=== PATIENT | male | born 1950 | race African-American/Black ===

== ENCOUNTER 2016-11-07 15:02 | Emergency (ER) | payer MEDICARE, MEDICAID ==
[~2016-11-07] VITALS: Ht 182.9 cm; Wt 55.0 kg
[~2016-11-07 15:02] MED LIST: ACET1TAB12 PO; ALBU05 NEB; AMLO10TA80 PO
[2016-11-07] MEDS: IPRATROPIUM/ALBUTEROL 0.5-3(2.5)MG/3ML NEB HHN ONE (16:30)
[2016-11-07] MEDS: LEVOFLOXACIN 500MG TABLET PO ONE (17:00)
[2016-11-07] MEDS: PREDNISONE 20MG TABLET PO ONE (17:00)
[2016-11-07 18:56] VITALS: BP 167/108
== END 2016-11-07 18:58 | disposition home or self-care (01) ==
LOC: ER 16:07
DX: J18.9 Pneumonia, unspecified organism (principal); J44.1 Chronic obstructive pulmonary disease with (acute) exacerbation; I10 Essential (primary) hypertension; F12.10 Cannabis abuse, uncomplicated; F17.200 Nicotine dependence, unspecified, uncomplicated
CPT/HCPCS: 71020; 93005; 94640; 99284; J7512; J7620

== ENCOUNTER 2018-10-02 07:30 | Emergency (ER) | payer MEDICAID, MEDICARE ==
[~2018-10-02] VITALS: Ht 182.9 cm; Wt 64.0 kg
[2018-10-02] MEDS ORDERED: ACETAMINOPHEN 325MG TABLET PO STA (10:07)
[2018-10-02] MEDS ORDERED: AMLODIPINE 10MG TABLET PO ONE (11:30)
[2018-10-02 14:17] LABS: *AMPHETAMINES SCREEN URINE NEGATIVE (NEGATIVE); *BARBITURATES SCREEN URINE NEGATIVE (NEGATIVE); *BENZODIAZEPINES SCREEN URINE NEGATIVE (NEGATIVE); *COCAINE SCREEN URINE NEGATIVE (NEGATIVE); METHADONE URINE SCREEN NEGATIVE (NEGATIVE); OPIATES URINE SCREEN NEGATIVE (NEGATIVE)
[2018-10-02 14:18] LABS: CANNABINOID URINE SCREEN NEGATIVE (NEGATIVE); PHENCYCLIDINE URINE SCREEN NEGATIVE (NEGATIVE)
[2018-10-02 14:29] VITALS: BP 138/84
== END 2018-10-02 14:33 | disposition home or self-care (01) ==
LOC: ER 07:30
DX: S00.83XA Contusion of other part of head, initial encounter (principal); J44.9 Chronic obstructive pulmonary disease, unspecified; I10 Essential (primary) hypertension; F17.200 Nicotine dependence, unspecified, uncomplicated; W51.XXXA Accidental striking against or bumped into by another person, initial encounter; Y93.89 Activity, other specified; Y92.89 Other specified places as the place of occurrence of the external cause; Y99.8 Other external cause status
CPT/HCPCS: 72100; 80305; 99284

== ENCOUNTER 2018-10-03 10:49 | Inpatient (IN) | payer MEDICARE, MEDICAID ==
[~2018-10-03] VITALS: Ht 182.9 cm; Wt 53.1 kg
[2018-10-03] MEDS ORDERED: ONDANSETRON HCL 4MG/2ML INJ IV STA (11:32)
[2018-10-03] MEDS ORDERED: SODIUM CHLORIDE 0.9% 1,000 ML IV ONE (11:32)
[2018-10-03] MEDS ORDERED: KETOROLAC 15MG/ML VIAL IV ONE (12:00)
[2018-10-03 12:25] LABS: HEMOGLOBIN. 15.2 g/dL (14.0-18.0); MEAN CORPUSCULAR HEMOGLOBIN 30.9 pg (28.0-32.0); MEAN CORPUSCULAR VOLUME 93.4 fL (80.0-94.0); MEAN PLATELET VOLUME 10.8 fl (7.4-10.4); PLATELET 171 x1000/uL (130-400); RED BLOOD CELL COUNT 4.93 mill/uL (4.7-6.1); RED CELL DISTRIBUTION WIDTH 19.7 % (11.6-14.6)
[2018-10-03 12:36] LABS: CHLORIDE 96 mEq/L (98-107)
[2018-10-03 12:41] LABS: D-DIMER 1.87 mg/L FEU (<0.50); INR 1.1
[2018-10-03 12:49] LABS: PLATELET ESTIMATE NORMAL
[2018-10-03] MEDS ORDERED: CEFTRIAXONE 1 G PREMIX 50 ML IV ONE (13:15)
[2018-10-03] MEDS ORDERED: AZITHROMYCIN 500 MG in DEXT 5% WATER 250 ML IV SCH (13:15)
[2018-10-03] MEDS: DILTIAZEM HCL 5MG/ML 5ML VIAL IV NR (16:11)
[2018-10-03] MEDS ORDERED: DOCUSATE SODIUM 100MG CAPSULE PO PRN (16:15)
[2018-10-03] MEDS ORDERED: ONDANSETRON HCL 4MG/2ML INJ IV PRN (16:15)
[2018-10-03] MEDS ORDERED: DIPHENHYDRAMINE 50MG/ML VIAL IV PRN (16:15)
[2018-10-03] MEDS ORDERED: ACETAMINOPHEN 650MG SUPP PR PRN (16:15)
[2018-10-03] MEDS ORDERED: NA PHOS,M-B/NA PHOS,DI-BA ENEMA 118ML PR PRN (16:15)
[2018-10-03] MEDS ORDERED: MAGNESIUM/ALUMINUM HYDROXIDE/SIMETHICONE 30ML UDC PO PRN (16:15)
[2018-10-03] MEDS ORDERED: IPRATROPIUM/ALBUTEROL 0.5-3(2.5)MG/3ML NEB INH PRN (16:15)
[2018-10-03] MEDS ORDERED: HYDROCODONE/ACETAMINOPHEN 5/325MG TABLET PO PRN (16:15)
[2018-10-03] MEDS ORDERED: LORAZEPAM 0.5MG TABLET PO PRN (16:15)
[2018-10-03] MEDS ORDERED: GUAIFENESIN 200MG/10ML SUGAR FREE UDC PO PRN (16:15)
[2018-10-03] MEDS ORDERED: ACETAMINOPHEN 325MG TABLET PO PRN (16:15)
[2018-10-03] MEDS ORDERED: DILTIAZEM HCL 5MG/ML 5ML VIAL IV PRN (16:15)
[2018-10-03] MEDS ORDERED: CLONIDINE 0.1MG TABLET PO PRN (16:15)
[2018-10-03 16:24] LABS: CLARITY URINE CLOUDY (CLEAR); COLOR URINE ORANGE (YELLOW); KETONES URINE TRACE (NEGATIVE); LEUKOCYTE ESTERASE URINE NEGATIVE (NEGATIVE); NITRITE URINE NEGATIVE (NEGATIVE); OCCULT BLOOD URINE NEGATIVE (NEGATIVE); PH URINE 5.5 (4.5-8.0); PROTEIN URINE 1+ (NEGATIVE); SPECIFIC GRAVITY URINE 1.018 (1.005-1.030)
[2018-10-03 16:27] LABS: BG BASE EXCESS 0.3 mmol/L (-2.0-2.0); BG CARBOXYHEMOGLOBIN 1.1 % (0.5-1.5); BG DEOXYHEMOGLOBIN 8.8 % (0.0-5.0); BG HCO3 ACT 22.7 mmol/L (22.0-26.0); BG METHEMOGLOBIN 0.3 % (0.0-1.5); BG OXYGEN SATURATION 91.1 % (92.0-98.5); BG OXYHEMOGLOBIN 89.8 % (94.0-97.0); BG PCO2 30.3 mmHg (35.0-45.0); BG PH 7.492 (7.350-7.450); BG PO2 59.5 mmHg (75.0-100.0); BG SAMPLE SITE RIGHT RADIAL; BG TOTAL HEMOGLOBIN 13.4 g/dL (12.0-18.0); BG VENT MODE ROOM AIR
[2018-10-03] MEDS ORDERED: DILTIAZEM HCL 30MG TABLET PO SCH (16:42)
[2018-10-03] MEDS: DILTIAZEM HCL 30MG TABLET PO SCH (17:48)
[2018-10-03 17:53] VITALS: BP 127/85
[2018-10-03 18:00] VITALS: BP 119/86
[2018-10-03] MEDS ORDERED: VANCOMYCIN 750 MG PREMIX 150 ML IV SCH (20:00)
[2018-10-03 20:01] VITALS: BP 99/71
[2018-10-03] MEDS: PIPERACILLIN/TAZ 2.25G PREMIX 50 ML IV SCH (20:08)
[2018-10-03] MEDS: SODIUM CHLORIDE 0.45% 1,000 ML IV SCH (20:17)
[2018-10-03 22:00] VITALS: BP 104/66
[2018-10-03 23:18] VITALS: BP 127/89
[2018-10-04] VITALS (14 sets, daily range): BP systolic 98–142; BP diastolic 23–92
[2018-10-04 00:06] LABS: CREATINE KINASE 255 IU/L (39-308)
[2018-10-04 00:26] LABS: CREATINE KINASE MB FRACTION < 1.0 ng/mL (0.5-3.6)
[2018-10-04] MEDS: DILTIAZEM HCL 30MG TABLET PO SCH ×4 (00:48→18:00)
[2018-10-04] MEDS: ENOXAPARIN 60MG/0.6ML SYR SUBCUT SCH ×2 (00:48→08:51)
[2018-10-04] MEDS: PIPERACILLIN/TAZ 2.25G PREMIX 50 ML IV SCH ×4 (01:59→20:44)
[2018-10-04] MEDS ORDERED: IOHEXOL-350 100 ML BOTTLE ONE (02:33)
[2018-10-04 07:36] LABS: CHLORIDE 98 mEq/L (98-107)
[2018-10-04 07:45] LABS: *AMPHETAMINES SCREEN URINE NEGATIVE (NEGATIVE); *BARBITURATES SCREEN URINE NEGATIVE (NEGATIVE); *BENZODIAZEPINES SCREEN URINE NEGATIVE (NEGATIVE); *COCAINE SCREEN URINE NEGATIVE (NEGATIVE)
[2018-10-04 07:46] LABS: CANNABINOID URINE SCREEN NEGATIVE (NEGATIVE); METHADONE URINE SCREEN NEGATIVE (NEGATIVE); OPIATES URINE SCREEN NEGATIVE (NEGATIVE); PHENCYCLIDINE URINE SCREEN NEGATIVE (NEGATIVE)
[2018-10-04 07:52] LABS: BASOPHILS % 0.2 % (0.0-2.0); EOSINOPHILS % 0.1 % (0.0-5.0); HEMATOCRIT. 34.7 % (42.0-52.0); HEMOGLOBIN. 11.5 g/dL (14.0-18.0); LYMPHOCYTES % 7.8 % (20.0-50.0); MEAN CORPUSCULAR HEMOGLOBIN 30.9 pg (28.0-32.0); MEAN CORPUSCULAR VOLUME 93.4 fL (80.0-94.0); MEAN PLATELET VOLUME 10.2 fl (7.4-10.4); MONOCYTES % 3.6 % (2.0-8.0); NEUTROPHILS % 88.3 % (40.0-76.0); PLATELET 90 x1000/uL (130-400); RED BLOOD CELL COUNT 3.71 mill/uL (4.7-6.1); RED CELL DISTRIBUTION WIDTH 19.3 % (11.6-14.6)
[2018-10-04] MEDS: BUDESONIDE 0.5MG/2ML NEB HHN SCH (07:52)
[2018-10-04] MEDS: IPRATROPIUM/ALBUTEROL 0.5-3(2.5)MG/3ML NEB INH SCH ×2 (07:52→13:40)
[2018-10-04 07:59] LABS: LDL CHOLESTEROL 11 mg/dL (5-100)
[2018-10-04] MEDS ORDERED: VANCOMYCIN 500 MG PREMIX 100 ML IV SCH (08:00)
[2018-10-04 08:01] LABS: CREATINE KINASE MB FRACTION < 1.0 ng/mL (0.5-3.6); HDL CHOLESTEROL 64 mg/dL (40-59); T4 FREE 1.43 ng/dL (0.76-1.46)
[2018-10-04 08:03] LABS: CREATINE KINASE 246 IU/L (39-308)
[2018-10-04] MEDS ORDERED: POTASSIUM CHLORIDE 20MEQ TABLET SR PO NR (08:45)
[2018-10-04] MEDS: SODIUM CHLORIDE 0.45% 1,000 ML IV SCH (08:52)
[2018-10-04] MEDS ORDERED: GENTAMICIN 100MG PREMIX 50 ML IV NR (10:00)
[2018-10-04] MEDS: GENTAMICIN 80MG PREMIX 100 ML IV SCH (22:03)
[2018-10-05] VITALS (7 sets, daily range): BP systolic 106–124; BP diastolic 61–89
[2018-10-05] MEDS: DILTIAZEM HCL 30MG TABLET PO SCH ×5 (00:17→23:26)
[2018-10-05] MEDS: BUDESONIDE 0.5MG/2ML NEB HHN SCH ×2 (01:30→20:05)
[2018-10-05] MEDS: IPRATROPIUM/ALBUTEROL 0.5-3(2.5)MG/3ML NEB INH SCH ×2 (01:31→20:06)
[2018-10-05] MEDS: SODIUM CHLORIDE 0.45% 1,000 ML IV SCH (01:57)
[2018-10-05] MEDS: PIPERACILLIN/TAZ 2.25G PREMIX 50 ML IV SCH ×3 (03:37→15:14)
[2018-10-05 06:47] LABS: BASOPHILS % 0.2 % (0.0-2.0); EOSINOPHILS % 0.8 % (0.0-5.0); HEMATOCRIT. 31.8 % (42.0-52.0); HEMOGLOBIN. 10.6 g/dL (14.0-18.0); LYMPHOCYTES % 9.9 % (20.0-50.0); MEAN CORPUSCULAR HEMOGLOBIN 30.8 pg (28.0-32.0); MEAN CORPUSCULAR VOLUME 92.3 fL (80.0-94.0); MONOCYTES % 4.6 % (2.0-8.0); NEUTROPHILS % 84.5 % (40.0-76.0); PLATELET 85 x1000/uL (130-400); RED BLOOD CELL COUNT 3.45 mill/uL (4.7-6.1); RED CELL DISTRIBUTION WIDTH 19.4 % (11.6-14.6)
[2018-10-05] MEDS ORDERED: ENOXAPARIN 40MG/0.4ML SYR SUBCUT SCH (09:00)
[2018-10-05] MEDS: GENTAMICIN 80MG PREMIX 100 ML IV SCH (09:41)
[2018-10-05] MEDS: CEFTRIAXONE 1 G PREMIX 50 ML IV SCH (17:28)
[2018-10-05 17:46] LABS: HEMATOCRIT 31.1 % (42.0-52.0); HEMOGLOBIN 10.3 g/dL (14.0-18.0); MEAN CORPUSCULAR HEMOGLOBIN 30.7 pg (28.0-32.0); MEAN CORPUSCULAR VOLUME 92.4 fL (80.0-94.0); PLATELET 88 x1000/uL (130-400); RED BLOOD CELL COUNT 3.36 mill/uL (4.7-6.1)
[2018-10-05 17:54] LABS: CHLORIDE 99 mEq/L (98-107)
[2018-10-05] MEDS ORDERED: POTASSIUM CHLORIDE 20MEQ TABLET SR PO NR (23:15)
[2018-10-06] VITALS (7 sets, daily range): BP systolic 127–159; BP diastolic 84–94
[2018-10-06] MEDS: IPRATROPIUM/ALBUTEROL 0.5-3(2.5)MG/3ML NEB INH SCH ×3 (01:58→21:26)
[2018-10-06] MEDS: DILTIAZEM HCL 30MG TABLET PO SCH ×3 (05:48→19:01)
[2018-10-06 06:03] LABS: CHLORIDE 103 mEq/L (98-107)
[2018-10-06 06:04] LABS: HEMATOCRIT. 30.4 % (42.0-52.0); HEMOGLOBIN. 10.4 g/dL (14.0-18.0); MEAN CORPUSCULAR HEMOGLOBIN 31.6 pg (28.0-32.0); MEAN CORPUSCULAR VOLUME 92.7 fL (80.0-94.0); PLATELET 100 x1000/uL (130-400); RED BLOOD CELL COUNT 3.28 mill/uL (4.7-6.1); RED CELL DISTRIBUTION WIDTH 19.2 % (11.6-14.6)
[2018-10-06 06:29] LABS: GENTAMICIN RANDOM 0.4 ug/mL
[2018-10-06 10:08] LABS: PLATELET ESTIMATE SLIGHTLY DECREASED
[2018-10-06] MEDS: CEFTRIAXONE 1 G PREMIX 50 ML IV SCH (19:02)
[2018-10-06] MEDS: BUDESONIDE 0.5MG/2ML NEB HHN SCH (21:26)
== END 2018-10-06 21:51 | DRG 871 ==
LOC: ER 10:49 → 3WST 14:44 → EDBEDREQ 15:00 → ENRESERV 15:14 → 8WST 10-04 23:15
PROVIDERS: ADMIT Internal Medicine; ATTEND Internal Medicine
DX: A41.59 Other Gram-negative sepsis (principal); I50.33 Acute on chronic diastolic (congestive) heart failure; J15.0 Pneumonia due to Klebsiella pneumoniae; J44.0 Chronic obstructive pulmonary disease with (acute) lower respiratory infection; E87.2 Acidosis; J44.1 Chronic obstructive pulmonary disease with (acute) exacerbation; R64 Cachexia; Z68.1 Body mass index [BMI] 19.9 or less, adult; R06.03 Acute respiratory distress; R73.9 Hyperglycemia, unspecified; I10 Essential (primary) hypertension; E86.0 Dehydration; E87.6 Hypokalemia; F17.200 Nicotine dependence, unspecified, uncomplicated; I11.0 Hypertensive heart disease with heart failure; E80.6 Other disorders of bilirubin metabolism; Z79.899 Other long term (current) drug therapy
CPT/HCPCS: 36415; 36600; 71045; 71275; 74177; 80048; 80061; 80170; 80305; 82375; 82550; 82553; 82805; 83036; 83605; 84439; 84443; 84484; 85027; 85379; 87070; 87077; 87186; 93005; 93306; 93970; 94640; 96361; 96365; 96368; 96375; 99285; J0456; J0696; J1580; J1650; J1885; J2405; J2543; J3370; J3490; J7030; J7040; J7060; J7620; J7626; Q9967

== ENCOUNTER 2020-04-10 18:48 | Emergency (ER) | payer MEDICARE, MEDICAID ==
[~2020-04-10] VITALS: Ht 182.9 cm; Wt 55.0 kg
[2020-04-10] MEDS ORDERED: CLONIDINE 0.2MG TABLET PO NR (21:30)
[2020-04-10 22:26] VITALS: BP 159/99
== END 2020-04-10 22:28 | disposition home or self-care (01) ==
LOC: ER 18:48
DX: I16.0 Hypertensive urgency (principal); G89.29 Other chronic pain; M54.9 Dorsalgia, unspecified; J44.1 Chronic obstructive pulmonary disease with (acute) exacerbation; I10 Essential (primary) hypertension; I49.9 Cardiac arrhythmia, unspecified; Z76.0 Encounter for issue of repeat prescription; Z98.890 Other specified postprocedural states
CPT/HCPCS: 93005; 99283

== ENCOUNTER 2020-04-23 14:21 | Emergency (ER) | payer MEDICARE, MEDICAID ==
[~2020-04-23] VITALS: Ht 182.9 cm; Wt 64.0 kg
[2020-04-23] MEDS ORDERED: METOPROLOL TARTRATE 50MG TABLET PO ONE (15:00)
[2020-04-23] MEDS ORDERED: DILTIAZEM HCL 180MG CAPSULE CD 24HR PO ONE (15:00)
[2020-04-23] MEDS ORDERED: HYDRALAZINE HCL 50MG TABLET PO ONE (15:00)
[2020-04-23 15:30] LABS: CHLORIDE 109 mEq/L (98-107)
[2020-04-23 15:33] LABS: HEMATOCRIT 41.1 % (42.0-52.0); HEMOGLOBIN 13.1 g/dL (14.0-18.0); MEAN CORPUSCULAR HEMOGLOBIN 27.8 pg (28.0-32.0); MEAN CORPUSCULAR VOLUME 87.3 fL (80.0-94.0); PLATELET 228 x1000/uL (130-400); RED BLOOD CELL COUNT 4.71 mill/uL (4.7-6.1); RED CELL DISTRIBUTION WIDTH 24.2 % (11.6-14.6)
[2020-04-23 18:04] VITALS: BP 180/98
== END 2020-04-23 18:05 | disposition home or self-care (01) ==
LOC: ER 14:51
DX: I10 Essential (primary) hypertension (principal); Z76.0 Encounter for issue of repeat prescription; F03.90 Unspecified dementia, unspecified severity, without behavioral disturbance, psychotic disturbance, mood disturbance, and anxiety; J44.9 Chronic obstructive pulmonary disease, unspecified; M54.30 Sciatica, unspecified side; Z98.1 Arthrodesis status
CPT/HCPCS: 36415; 80048; 82962; 84484; 85027; 93005; 99284; 99285

== ENCOUNTER 2020-07-30 23:19 | Emergency (ER) | payer MEDICARE ==
[~2020-07-30] VITALS: Ht 182.9 cm; Wt 64.0 kg
[2020-07-31] MEDS ORDERED: SODIUM CHLORIDE 0.9% 1,000 ML IV ONE (02:15)
[2020-07-31 04:05] LABS: BASOPHILS % 0.9 % (0.0-2.0); EOSINOPHILS % 2.5 % (0.0-5.0); HEMATOCRIT. 40.2 % (42.0-52.0); HEMOGLOBIN. 12.8 g/dL (14.0-18.0); LYMPHOCYTES % 35.8 % (20.0-50.0); MEAN CORPUSCULAR HEMOGLOBIN 28.9 pg (28.0-32.0); MEAN CORPUSCULAR VOLUME 90.4 fL (80.0-94.0); MEAN PLATELET VOLUME 9.5 fl (7.4-10.4); MONOCYTES % 10.1 % (2.0-8.0); NEUTROPHILS % 50.7 % (40.0-76.0); PLATELET 186 x1000/uL (130-400); RED BLOOD CELL COUNT 4.45 mill/uL (4.7-6.1); RED CELL DISTRIBUTION WIDTH 20.2 % (11.6-14.6)
[2020-07-31 04:15] LABS: CHLORIDE 104 mEq/L (98-107)
[2020-07-31 04:24] LABS: CREATINE KINASE 313 IU/L (39-308)
[2020-07-31] MEDS ORDERED: IBUP-2028 MT (05:59)
[2020-07-31] MEDS ORDERED: POTASSIUM CHLORIDE 20MEQ TABLET SR PO SCH (06:00)
[2020-07-31 06:35] VITALS: BP 152/89
== END 2020-07-31 06:40 | disposition home or self-care (01) ==
LOC: ER 23:19
DX: E87.6 Hypokalemia (principal); K86.89 Other specified diseases of pancreas; J44.9 Chronic obstructive pulmonary disease, unspecified; I10 Essential (primary) hypertension; Z79.899 Other long term (current) drug therapy; Z86.73 Personal history of transient ischemic attack (TIA), and cerebral infarction without residual deficits
CPT/HCPCS: 36415; 71045; 74176; 80053; 82550; 83690; 85025; 93005; 99284; J7030

== ENCOUNTER 2020-07-31 07:45 | Emergency (ER) | payer MEDICARE ==
[~2020-07-31] VITALS: Ht 182.9 cm; Wt 66.0 kg
[~2020-07-31 07:45] MED LIST changes: +IBUP-2028 MT
[2020-07-31 10:30] VITALS: BP 157/97
== END 2020-07-31 10:55 | disposition home or self-care (01) ==
LOC: ER 07:55
DX: E04.1 Nontoxic single thyroid nodule (principal); I10 Essential (primary) hypertension; J44.1 Chronic obstructive pulmonary disease with (acute) exacerbation; Z98.890 Other specified postprocedural states
CPT/HCPCS: 76536; 99284

== ENCOUNTER 2020-08-19 13:37 | Emergency (ER) | payer MEDICARE ==
[~2020-08-19] VITALS: Ht 182.9 cm; Wt 65.0 kg
[2020-08-19] MEDS ORDERED: IBUPROFEN 600MG TABLET PO STA (14:31)
[2020-08-19] MEDS ORDERED: NAPR-681 PO (15:38)
[2020-08-19] MEDS ORDERED: AMLO10TA80 MT (15:38)
[2020-08-19 16:20] VITALS: BP 162/100
== END 2020-08-19 16:25 | disposition home or self-care (01) ==
LOC: ER 13:37
DX: M25.541 Pain in joints of right hand (principal); M25.571 Pain in right ankle and joints of right foot; J44.9 Chronic obstructive pulmonary disease, unspecified; I10 Essential (primary) hypertension; Z98.890 Other specified postprocedural states; Z79.899 Other long term (current) drug therapy
CPT/HCPCS: 73130; 99282; 99283

== ENCOUNTER 2020-08-30 18:09 | Emergency (ER) | payer MEDICARE, MEDICAID ==
[~2020-08-30] VITALS: Ht 167.6 cm; Wt 68.0 kg
[~2020-08-30 18:09] MED LIST changes: +AMLO10TA80 MT; +NAPR-681 PO
[2020-08-30] MEDS ORDERED: IBUPROFEN 400MG TABLET PO ONE (18:30)
[2020-08-30 18:48] VITALS: BP 188/115
[2020-08-30] MEDS ORDERED: IBUP-2028 MT (19:46)
== END 2020-08-30 20:33 | disposition home or self-care (01) ==
LOC: ER 18:09
DX: S93.401A Sprain of unspecified ligament of right ankle, initial encounter (principal); M79.601 Pain in right arm; J44.9 Chronic obstructive pulmonary disease, unspecified; I10 Essential (primary) hypertension; M54.30 Sciatica, unspecified side; F17.210 Nicotine dependence, cigarettes, uncomplicated; W01.0XXA Fall on same level from slipping, tripping and stumbling without subsequent striking against object, initial encounter; Y93.89 Activity, other specified; Y92.811 Bus as the place of occurrence of the external cause; Y99.8 Other external cause status
CPT/HCPCS: 73080; 73110; 73610; 99283

== ENCOUNTER 2020-09-05 21:36 | Emergency (ER) | payer MEDICARE, MEDICAID ==
[2020-09-05 22:40] LABS: BASOPHILS % 1.9 % (0.0-2.0); EOSINOPHILS % 1.9 % (0.0-5.0); HEMATOCRIT. 36.9 % (42.0-52.0); HEMOGLOBIN. 12.3 g/dL (14.0-18.0); LYMPHOCYTES % 45.4 % (20.0-50.0); MEAN CORPUSCULAR HEMOGLOBIN 29.1 pg (28.0-32.0); MEAN CORPUSCULAR VOLUME 87.4 fL (80.0-94.0); MEAN PLATELET VOLUME 8.6 fl (7.4-10.4); MONOCYTES % 9.3 % (2.0-8.0); NEUTROPHILS % 41.5 % (40.0-76.0); PLATELET 252 x1000/uL (130-400); RED BLOOD CELL COUNT 4.23 mill/uL (4.7-6.1); RED CELL DISTRIBUTION WIDTH 19.2 % (11.6-14.6)
[2020-09-05 22:48] LABS: CHLORIDE 109 mEq/L (98-107)
[2020-09-06 00:20] LABS: CLARITY URINE CLEAR (CLEAR); COLOR URINE YELLOW (YELLOW); KETONES URINE NEGATIVE (NEGATIVE); LEUKOCYTE ESTERASE URINE NEGATIVE (NEGATIVE); NITRITE URINE NEGATIVE (NEGATIVE); OCCULT BLOOD URINE TRACE (NEGATIVE); PH URINE 6.5 (4.5-8.0); PROTEIN URINE NEGATIVE (NEGATIVE); UROBILINOGEN URINE 0.2 E.U./dL (0.2-1.0)
[2020-09-06 02:13] VITALS: BP 179/94
== END 2020-09-06 03:47 | disposition short-term general hospital (02) ==
LOC: ER 22:04
DX: I50.9 Heart failure, unspecified (principal); R60.0 Localized edema; I10 Essential (primary) hypertension
CPT/HCPCS: 36415; 71045; 80053; 81003; 83880; 84484; 85025; 93005; 99285

== ENCOUNTER 2020-09-12 18:30 | Emergency (ER) | payer MEDICARE, MEDICAID ==
[~2020-09-12] VITALS: Ht 182.9 cm; Wt 64.0 kg
[2020-09-12 18:46] VITALS: BP 156/101
[2020-09-12] MEDS ORDERED: ACETAMINOPHEN 325MG TABLET PO ONE (20:00)
== END 2020-09-12 21:49 | disposition home or self-care (01) ==
LOC: ER 18:30
DX: S63.91XA Sprain of unspecified part of right wrist and hand, initial encounter (principal); S60.221A Contusion of right hand, initial encounter; I11.9 Hypertensive heart disease without heart failure; J44.9 Chronic obstructive pulmonary disease, unspecified; M41.9 Scoliosis, unspecified; Z98.890 Other specified postprocedural states; W01.0XXA Fall on same level from slipping, tripping and stumbling without subsequent striking against object, initial encounter; Y93.89 Activity, other specified; Y92.018 Other place in single-family (private) house as the place of occurrence of the external cause
CPT/HCPCS: 73130; 99282